=== PATIENT | female | born 1990 | race Caucasian/White ===

== ENCOUNTER 2017-01-25 09:22 | Emergency (ER) | payer OTHER ==
[~2017-01-25] VITALS: Ht 172.7 cm; Wt 113.4 kg
[~2017-01-25 09:22] MED LIST: CLIN300C8 PO
[2017-01-25 09:40] VITALS: BP 124/76
[2017-01-25] MEDS ORDERED: NAPR500T PO (09:58)
[2017-01-25] MEDS ORDERED: ACET-704 PO (09:58)
--- NOTE | 2017-01-25 10:02 | PHYS DOC ---
General Chief Complaint: ANKLE PROBLEM Stated Complaint: FOOT PROBLEM Time Seen by MD: 09:23 Source: patient Exam Limitations: no limitations Problems: History of Present Illness Initial Comments Pt is 26/F to ED c/o left foot pain. Pt states last night left foot went thru "hole" in her porch. States it caused her to fall forward twisting her foot. Complains of lateral foot pain no other injuries from the fall. Although pt barefoot and fell thru wood hole pt managed to avoid abrasions/lacerations/splinters/bruising or other skin changes. Missing work now, requests note and pain meds. Onset: yesterday Pain/Injury Location: left foot Method of Injury: twisted, other Modifying Factors: worse with jarring, worse with movement, improves with rest Allergies: Coded Allergies: Penicillins (Verified Allergy, Unknown, 08/09/16) Past Medical History Medical History: no pertinent history Surgical History: noncontributory Social History Smoker: non-smoker Alcohol: none Drugs: marijuana Review of Systems Constitutional: denies chills, denies fever Respiratory: denies cough, denies shortness of breath Cardiovascular: denies chest pain, denies palpitations Gastrointestinal: denies nausea, denies vomiting Musculoskeletal: see HPI Skin: see HPI Psychiatric/Neurological: see HPI Physical Exam General Appearance: no apparent distress, obese HEENT: normal ENT inspection Neck: non-tender, supple Cardiovascular/Respiratory: normal peripheral pulses, no respiratory distress Back: no CVA tenderness, no vertebral tenderness Feet: right foot non-tender, bilateral foot normal inspection, bilateral foot normal range of motion, bilateral foot no evidence of injury, left foot other ( TTP lateral foot) Neurologic/Tendon: normal sensation, normal motor functions, normal tendon functions, responds to pain, no evidence tendon injury Psychiatric: alert, oriented x 3 Skin: normal color, warm/dry Orders, Labs, Meds L Foot: no acute osseous abnormality Departure Time of Disposition: 10:01 Disposition: 01 HOME, SELF-CARE Diagnosis: midfoot sprain Condition: GOOD Patient Instructions: Foot Sprain-Brief, RICE - Routine Care for Injuries, Easy -to-Read Additional Instructions: RICE, see handout. Wear post-op shoe as needed. Work excuse today. Rx: [id number], Tyl #3 (10) Take meds with food. Follow up with your doctor in 5-7 days if not better. Return to ED with new or changing symptoms. ROSANNA MCCORMICK DO January 25, 2017 10:02
--- NOTE | 2017-01-25 10:10 | RAD ---
Examination: 3 views of the left foot History: History of left foot injury. Comparison: None available Findings: The alignment of the tarsal bones grossly appears unremarkable. The metatarsal phalangeal joints, interphalangeal joint grossly appears unremarkable. There is no obvious acute fracture identified. Mild soft tissue swelling identified lateral to the fifth metatarsal. Impression: No acute osseous findings. Mild soft tissue swelling identified lateral to the fifth metatarsal.
== END 2017-01-25 10:15 | disposition home or self-care (01) ==
LOC: ER 09:22
DX: S93.602A Unspecified sprain of left foot, initial encounter (principal); F12.10 Cannabis abuse, uncomplicated; Z88.0 Allergy status to penicillin; W19.XXXA Unspecified fall, initial encounter; Y93.89 Activity, other specified; Y99.8 Other external cause status; Y92.89 Other specified places as the place of occurrence of the external cause
CPT/HCPCS: 73630; 99284

== ENCOUNTER 2017-02-17 13:26 | Emergency (ER) | payer OTHER ==
[~2017-02-17] VITALS: Ht 157.5 cm; Wt 113.4 kg
[~2017-02-17 13:26] MED LIST changes: +ACET-704 PO; +NAPR500T PO
[2017-02-17 13:30] VITALS: BP 143/84
--- NOTE | 2017-02-17 14:06 | PHYS DOC ---
General Chief Complaint: LACERATION/AVULSION Stated Complaint: LACERATION TO RT EYE Time Seen by MD: 13:43 Source: patient Exam Limitations: no limitations Problems: History of Present Illness Occurred: just prior to arrival Severity: mild Location: frontal Method of Injury: other (stood up and struck her forehead on the corner of an open cabinet door. ) Pain/Injuries: sustained laceration to the right eyebrow region Loss of Consciousness: no loss of consciousness Associated Symptoms: denies symptoms Allergies: Coded Allergies: Penicillins (Verified Allergy, Unknown, 08/09/16) Past Medical History Medical History: no medical history LMP (Females 10-50): last week Family History Significant Family History: no pertinent family hx Social History Smoker: non-smoker Alcohol: none Drugs: none Review of Systems Constitutional: no symptoms reported Eyes: no symptoms reported Ears, Nose, Mouth, Throat: no symptoms reported Skin: other (laceration) Psychiatric/Neurological: no symptoms reported Physical Exam General Appearance: WD/WN, no apparent distress Head: lacerations (present to the upper outer right eyebrow region) Eyes: bilateral eye normal inspection, bilateral eye PERRL, bilateral eye EOMI Ears, Nose, Throat, Mouth: hearing grossly normal, no evidence of ENT injury Neck: non-tender, full range of motion Extremities: normal range of motion, normal inspection Psychiatric: alert, oriented x 3 Cranial Nerves: normal hearing Motor/Sensory: no motor deficit, no sensory deficit Skin: normal color (3cm laceration present the right lateral superior portion of the eyebrow. No active bleeding. Superficial) Laceration/Wound Repair Laceration/Wound Repair : Wound Location: face Wound's Depth, Shape: superficial, linear Wound Length (cm): 3 Wound Explored: clean Irrigated w/ Saline (ccs): 15 Betadine Prep?: No Wound Repaired With: Steri-strips, Dermabond Layer Closure?: No Orders, Labs, Meds No other intervention required. Steristrips and dermabond instructions provided to the patient. No complications and patient tolerated procedure without difficulty. Normal ambulation upon discharge. CALVIN CONLEY MD Feb 17, 2017 14:06
== END 2017-02-17 13:59 | disposition home or self-care (01) ==
LOC: ER 13:26
DX: S01.81XA Laceration without foreign body of other part of head, initial encounter (principal); Z88.0 Allergy status to penicillin; W22.8XXA Striking against or struck by other objects, initial encounter; Y93.89 Activity, other specified; Y99.8 Other external cause status; Y92.89 Other specified places as the place of occurrence of the external cause
CPT/HCPCS: 12011; 99283-25

== ENCOUNTER 2019-02-07 02:33 | Emergency (ER) | payer SELFPAY ==
[~2019-02-07] VITALS: Ht 160 cm; Wt 60.4 kg
[~2019-02-07 02:33] MED LIST changes: +NAPR-683 PO; -NAPR500T PO
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
--- NOTE | 2019-02-07 03:32 | RAD ---
PQRS Compliance statement: One or more of the following individualized dose reduction techniques were utilized for this examination: 1. Automated exposure control. 2. Adjustment of the mA and/or kV according to patient size. 3. Use of iterative reconstruction technique. Indication:Fall. TECHNIQUE: CT of the maxillofacial bones without IV contrast multiplanar reformats. COMPARISON: None FINDINGS: The paranasal sinuses and mastoid air cells are clear. No acute fractures. The bilateral temporomandibular joints and mandible are within normal limits. The lenses, globes, extraocular muscles and intraorbital fat are within normal limits. No fascial soft tissue swelling. Visualized noncontrast sections through the brain are within normal limits. IMPRESSION: No acute findings. Electronically signed by: Bertin Obregon DO (02/07/2019 3:28 AM) [facility]
--- NOTE | 2019-02-07 03:35 | RAD ---
PQRS Compliance statement: One or more of the following individualized dose reduction techniques were utilized for this examination: 1. Automated exposure control. 2. Adjustment of the mA and/or kV according to patient size. 3. Use of iterative reconstruction technique. Indication:Fall TECHNIQUE: CT head without IV contrast COMPARISON:None FINDINGS: No pathologic extra-axial or intra-axial fluid collection. The ventricles and basal cisterns are within normal limits. No acute intracranial bleed. Visualized orbits within normal limits. No large scalp hematoma. Mild laceration overlying the right lateral supraorbital scalp. No acute calvarial fractures. IMPRESSION: 1. No acute intracranial bleed or calvarial fracture. 2. Mild laceration overlying lateral right supraorbital frontal scalp. Indication:Fall TECHNIQUE: CT of the cervical spine without IV contrast with multiplanar reformats. COMPARISON:None FINDINGS: There is mild reversal of normal cervical lordosis. This could be due to muscle spasm or positioning. Atlantoaxial joint or is preserved. No compression deformity. Facet joints are in normal anatomic alignment. No acute fractures. Noncontrast appearance of the neck soft tissue is within normal limits. Clear lung apices. IMPRESSION: No acute fractures. Electronically signed by: Bertin Obregon DO (02/07/2019 3:33 AM) [facility]
[2019-02-07] MEDS ORDERED: HYDROcodone/APAP 5/325MG 1 TAB TABLET PO ONE (04:00)
[2019-02-07] MEDS ORDERED: HYDR-3165 PO (04:31)
[2019-02-07 04:37] VITALS: BP 124/68
== END 2019-02-07 04:37 | disposition home or self-care (01) ==
LOC: ER 02:33
DX: S01.111A Laceration without foreign body of right eyelid and periocular area, initial encounter (principal); R51 Headache; M54.2 Cervicalgia; W10.8XXA Fall (on) (from) other stairs and steps, initial encounter; Y93.89 Activity, other specified; Y92.89 Other specified places as the place of occurrence of the external cause; Y99.8 Other external cause status
CPT/HCPCS: 12013; 70450; 70486; 72125; 99284-25

== ENCOUNTER 2019-04-30 20:15 | Emergency (ER) | payer OTHER ==
[~2019-04-30] VITALS: Ht 160 cm; Wt 48.5 kg
[~2019-04-30 20:15] MED LIST changes: +HYDR-3165 PO
--- NOTE | 2019-04-30 21:38 | PHYS DOC ---
Past History Past Medical History: No Pertinent History Past Surgical History: Cholecystectomy, Gastric Bypass, Tonsillectomy Alcohol Use: None Drug Use: None Adult General Chief Complaint Chief Complaint: DRUG ABUSE HPI HPI 29-year-old female brought to the emergency room by her friend for drug intoxication. Patient states that she did meth, she thinks. Friend also reports marijuana and agrees it is likely methamphetamine. Patient denies any pain or concerns. She admits that she feels little paranoid and freaked out. She denies audible or visual hallucinations. She has no medical complaints. Review of Systems Review of Systems Constitutional: Denies fever or chills [] Eyes: Denies change in visual acuity, redness, or eye pain [] HENT: Denies nasal congestion or sore throat [] Respiratory: Denies cough or shortness of breath [] Cardiovascular: No additional information not addressed in HPI [] GI: Denies abdominal pain, nausea, vomiting, bloody stools or diarrhea [] : Denies dysuria or hematuria [] Musculoskeletal: Denies back pain or joint pain [] Integument: Denies rash or skin lesions [] Neurologic: Denies headache, focal weakness or sensory changes [] Endocrine: Denies polyuria or polydipsia [] All other systems were reviewed and found to be within normal limits, except as documented in this note. Current Medications Current Medications Current Medications Medications (Trade) Dose Ordered Sig/Gordo Start Time Stop Time Status Last Admin Dose Admin Sodium Chloride 1,000 ml @ 1,000 mls/hr 1X ONCE 04/30/19 22:00 04/30/19 22:59 Allergies Allergies Allergies Coded Allergies Type Severity Reaction Last Updated Verified Penicillins Allergy Intermediate 02/07/19 Yes Physical Exam Physical Exam Constitutional: Well developed, well nourished, no acute distress, non-toxic appearance. [] HENT: Normocephalic, atraumatic, bilateral external ears normal, oropharynx moist, no oral exudates, nose normal. [] Eyes: PERRLA, EOMI, conjunctiva normal, no discharge. [] Neck: Normal range of motion, no tenderness, supple, no stridor. [] Cardiovascular:Heart rate regular rhythm, no murmur [] Lungs & Thorax: Bilateral breath sounds clear to auscultation [] Abdomen: Bowel sounds normal, soft, no tenderness, no masses, no pulsatile masses. [] Skin: Warm, dry, no erythema, no rash. [] Back: No tenderness, no CVA tenderness. [] Extremities: No tenderness, no cyanosis, no clubbing, ROM intact, no edema. [] Neurologic: Alert and oriented X 3, normal motor function, normal sensory function, no focal deficits noted. [] Psychologic: Affect normal, judgement normal, mood normal. [] EKG EKG [] Radiology/Procedures Radiology/Procedures [] Course & Med Decision Making Course & Med Decision Making Pertinent Labs and Imaging studies reviewed. (See chart for details) The patient is agitated and paranoid, but her vitals are within normal limits. I will give her 4 mg of Ativan IV as well as 1 L normal saline. Labs are pending. The patient did not get her Ativan prior to leaving. Her labs are unremarkable. Her vital signs remained stable. She is positive for methamphetamine and marijuana. She does not appear to have taken a toxic dose. She is stable for discharge at this time. [] Dragon Disclaimer Dragon Disclaimer This electronic medical record was generated, in whole or in part, using a voice recognition dictation system. Departure Departure: Impression: Primary Impression: Methamphetamine abuse Additional Impression: Marijuana abuse Disposition: 01 HOME, SELF-CARE Condition: STABLE Referrals: PCP,NO (PCP) Problem Qualifiers WILLOW AVINA DO Apr 30, 2019 21:38
[2019-04-30 21:44] LABS: BARBITURATES NEG (NEG); BENZODIAZEPINES NEG (NEG); CANNABINOIDS POS (NEG); COCAINE NEG (NEG); METHADONE NEG (NEG); OPIATES NEG (NEG); PHENCYCLIDINE NEG (NEG)
[2019-04-30 21:46] LABS: AMPHETAMINE/METHAMPHETAMINE POS (NEG)
[2019-04-30 21:47] LABS: BASO # 0.1 x10^3/uL (0.0-0.2); BASO % 1 % (0-3); EOS % 0 % (0-3); HEMATOCRIT 43.1 % (36.0-47.0); HEMOGLOBIN 14.1 g/dL (12.0-15.5); LYMPH # 2.5 x10^3/uL (1.0-4.8); LYMPH % 29 % (24-48); MEAN CORPUSCULAR HEMOGLOBIN 27 pg (25-35); MEAN CORPUSCULAR HGB CONC 33 g/dL (31-37); MEAN CORPUSCULAR VOLUME 83 fL (79-100); MONO # 0.5 x10^3/uL (0.0-1.1); MONO % 6 % (0-9); NEUT # 5.6 x10^3uL (1.8-7.7); NEUT % 65 % (31-73); PLATELET COUNT 326 x10^3/uL (140-400); RED BLOOD COUNT 5.22 x10^6/uL (3.50-5.40); RED CELL DISTRIBUTION WIDTH 23.5 % (11.5-14.5); WHITE BLOOD COUNT 8.6 x10^3/uL (4.0-11.0)
[2019-04-30] MEDS ORDERED: IV NORMAL SALINE 1,000ML 1,000 ML IV ONE (22:00)
[2019-04-30 22:06] LABS: ALBUMIN 4.4 g/dL (3.4-5.0); CALCIUM 9.5 mg/dL (8.5-10.1); CREATININE 1.3 mg/dL (0.6-1.0); GFR 48.8; POTASSIUM 3.1 mmol/L (3.5-5.1); TOTAL BILIRUBIN 0.3 mg/dL (0.2-1.0); TOTAL PROTEIN 8.6 g/dL (6.4-8.2)
[2019-04-30 22:14] LABS: ACETAMIN < 2.0 mcg/mL (10-30); SALIC 4.1 mg/dL (2.8-20.0)
[2019-04-30 22:25] VITALS: BP 147/85
[2019-04-30 23:39] LABS: ANISOCYTOSIS SLIGHT; PLT ESTIMATE ADEQUATE (ADEQUATE); POLYCHROMASIA SLIGHT
[2019-04-30 23:40] LABS: SCHISTOCYTES OCC
== END 2019-04-30 22:27 | disposition home or self-care (01) ==
LOC: ER 20:15
DX: F15.10 Other stimulant abuse, uncomplicated (principal); F12.10 Cannabis abuse, uncomplicated; Z98.84 Bariatric surgery status; Z88.0 Allergy status to penicillin
CPT/HCPCS: 36415; 80053; 80307; 80329; 85025; 99284; G0480; 82003

== ENCOUNTER 2019-12-06 22:52 | Emergency (ER) | payer SELFPAY ==
[~2019-12-06] VITALS: Ht 160 cm; Wt 60.4 kg
[2019-12-06 22:52] VITALS: BP 130/89
--- NOTE | 2019-12-06 23:01 | PHYS DOC ---
Past History Past Medical History: No Pertinent History, Anxiety, Bipolar, Bronchitis, Constipation, Gallstones, GERD, UTI Past Medical History Genital herpes Past Surgical History: Cholecystectomy, Gastric Bypass, Tonsillectomy Past Surgical History Niko-en-Y bypass 2016 Smoking: Cigarettes Alcohol Use: None Drug Use: Marijuana, Methamphetamine Adult General Chief Complaint Chief Complaint: ".. I ve been hurting for months..... but I could not stand it tonight... here in my stomach area.. I am constipated too.. have not gone to bath room for 6 days but.. I have not eaten much... hand full of cereal this morning..." HPI HPI Patient is a 29 year old female who presents with above hx and complaints of severe epigastric pain. She also complaining of constipation. No recent travel outside the cancer area. Does have a history of GERD. No history of bad food intake. No history of trauma. Patient denies any significant treatment of immunosuppression or specific ill contacts. Review of Systems Review of Systems Constitutional: Denies fever or chills [] Eyes: Denies change in visual acuity, redness, or eye pain [] HENT: Denies nasal congestion or sore throat [] Respiratory: Denies cough or shortness of breath [] Cardiovascular: No additional information not addressed in HPI [] GI: Complaints of abdominal pain, nausea,. Denies vomiting, bloody stools or diarrhea [patient has complaints of constipation : Denies dysuria or hematuria [] Musculoskeletal: Denies back pain or joint pain [] Integument: Denies rash or skin lesions [] Neurologic: Denies headache, focal weakness or sensory changes [] Endocrine: Denies polyuria or polydipsia [] All other systems were reviewed and found to be within normal limits, except as documented in this note. Family History Family History Noncontributory Current Medications Current Medications See nursing for home meds Allergies Allergies Allergies Coded Allergies Type Severity Reaction Last Updated Verified Penicillins Allergy Intermediate 02/07/19 Yes Physical Exam Physical Exam Constitutional: Well developed, well nourished, moderate acute distress, non-toxic appearance. [] HENT: Normocephalic, atraumatic, bilateral external ears normal, oropharynx moist, no oral exudates, nose normal. [] Eyes: PERRLA, EOMI, conjunctiva normal, no discharge. [] Neck: Normal range of motion, no tenderness, supple, no stridor. [] Cardiovascular:Heart rate regular rhythm, no murmur [] Lungs & Thorax: Bilateral breath sounds equal apex with few scattered wheezes on auscultation [] Abdomen: Bowel sounds normal, soft, epigastric tenderness, no masses, no pulsatile masses. [Distended abdomen. No focal areas of rebound. Skin: Warm, dry, no erythema, no rash. [] Back: No tenderness, no CVA tenderness. [] Extremities: No tenderness, no cyanosis, no clubbing, ROM intact, no edema. No true psoas sign. Neurologic: Alert and oriented X 3, normal motor function, normal sensory func tion, no focal deficits noted. [] Psychologic: Affect very anxious, judgement normal, mood normal. [] EKG EKG [] Radiology/Procedures Radiology/Procedures [][address] [address] IMAGING REPORT Signed PATIENT: KO HOFFMAN LACCOUNT: [id number] : 1990 LOCATION: ER AGE: 29 SEX: F EXAM STATUS: REG ER ORD. PHYSICIAN: VICKY SELF MD REASON: Abdomen pain, nausea, constipation PROCEDURE: ACUTE ABDOMEN SERIES ACUTE ABDOMEN SERIES INDICATION: Abdominal pain, nausea, constipation. COMPARISON STUDY: None. FINDINGS: Lungs: Normal lung volume. No pulmonary mass or consolidation. The tracheobronchial tree and hilar structures are normal. Pleura: No pleural effusion or pneumothorax. Heart and Mediastinum: The cardiomediastinal silhouette is normal. The great vessels of the thorax are normal. Abdomen: Nonobstructive bowel gas pattern. No free air. Moderate colonic stool burden. IMPRESSION: 1. Nonobstructive bowel gas pattern. Moderate colonic stool. 2. No consolidation. Electronically signed by: Kiara Boles MD (12/07/2019 12:10 AM) [id number] DICTATED AND SIGNED BY: KIARA BOLES MD DATE: 12/07/19 0010 CC: VICKY SELF MD; PCP,NO ~ Course & Med Decision Making Course & Med Decision Making Pertinent Labs and Imaging studies reviewed. (See chart for details) Patient's stay on a clear fluid diet only for the next 2 days. No solids no milk products. Follow-up primary care. Expect some loose stools with the magnesium. Follow-up primary care. Return for reexam if no improvement 2 days of clear fluids. Take Tylenol for pain. Avoid illicit drugs. Encouraged patient not to smoke. Take Bactrim DS twice a day. Which vitamin C drinks. Return if any concerns. Follow- CDC for up to date guidelines on [place] 19. Self isolate.. Practice social distance Impression: 1. Abdomen Pain 2. Constipation 3. Polysubstance abuse 4. Tobacco and marijuana use 5. Urinary tract infection []Note there may be omissions, deficits and/or duplications because of computer shut down during workup of this patient. Dragon Disclaimer Dragon Disclaimer This electronic medical record was generated, in whole or in part, using a voice recognition dictation system. Departure Departure: Disposition: HOME/RESIDENCE PRIOR TO ADM Condition: STABLE Referrals: PCP,NO (PCP) Scripts Sulfamethoxazole/Trimethoprim (BACTRIM DS TABLET) 1 Each Tablet 1 TAB PO BID for UTI for 10 Days, #20 TAB 0 Refills Prov: VICKY SELF MD 12/07/19 Dragon Disclaimer This chart was dictated in whole or in part using Voice Recognition software in a busy, high-work load, and often noisy Emergency Department environment. It may contain unintended and wholly unrecognized errors or omissions. Dragon Disclaimer This chart was dictated in whole or in part using Voice Recognition software in a busy, high-work load, and often noisy Emergency Department environment. It may contain unintended and wholly unrecognized errors or omissions. VICKY SELF MD Dec 06, 2019 23:01
[2019-12-06] MEDS ORDERED: IV RINGERS SOLUTION,LACTATED 1,000 ML IV SCH (23:15)
[2019-12-06] MEDS ORDERED: FAMOTIDINE 20 MG/2 ML VIAL IVP ONE (23:30)
[2019-12-06] MEDS ORDERED: ONDANSETRON PF 4 MG/2 ML VIAL. IVP ONE (23:30)
[2019-12-06 23:43] LABS: BASO # 0.2 x10^3/uL (0.0-0.2); BASO % 2 % (0-3); EOS # 0.1 x10^3/uL (0.0-0.7); EOS % 1 % (0-3); HEMATOCRIT 35.9 % (36.0-47.0); HEMOGLOBIN 11.6 g/dL (12.0-15.5); LYMPH # 2.6 x10^3/uL (1.0-4.8); LYMPH % 28 % (24-48); MEAN CORPUSCULAR HEMOGLOBIN 27 pg (25-35); MEAN CORPUSCULAR HGB CONC 32 g/dL (31-37); MEAN CORPUSCULAR VOLUME 82 fL (79-100); MONO # 0.5 x10^3/uL (0.0-1.1); MONO % 5 % (0-9); NEUT # 5.9 x10^3uL (1.8-7.7); NEUT % 64 % (31-73); PLATELET COUNT 588 x10^3/uL (140-400); RED BLOOD COUNT 4.39 x10^6/uL (3.50-5.40); RED CELL DISTRIBUTION WIDTH 15.9 % (11.5-14.5); WHITE BLOOD COUNT 9.3 x10^3/uL (4.0-11.0)
[2019-12-06] MEDS ORDERED: KETOROLAC 30 MG/ML VIAL. IVP ONE (23:45)
[2019-12-06 23:57] LABS: ANION GAP 7 (6-14); BLOOD UREA NITROGEN 9 mg/dL (7-20); CALCIUM 8.8 mg/dL (8.5-10.1); CARBON DIOXIDE 31 mmol/L (21-32); CHLORIDE 104 mmol/L (98-107); CREATININE 0.8 mg/dL (0.6-1.0); GFR 85.4; GLUCOSE 104 mg/dL (70-99); SODIUM 142 mmol/L (136-145)
[2019-12-06 23:58] LABS: BARBITURATES NEG (NEG); BENZODIAZEPINES POS (NEG); BILIRUBIN,URINE NEG (NEG); CANNABINOIDS POS (NEG); CLARITY,URINE HAZY; COCAINE NEG (NEG); COLOR,URINE YELLOW; GLUCOSE,URINE NEG (NEG); METHADONE NEG (NEG); NITRITE,URINE POS (NEG); OPIATES POS (NEG); PHENCYCLIDINE NEG (NEG)
[2019-12-06 23:59] LABS: BACTERIA,URINE MANY /HPF (0-FEW); RBC,URINE 0 /HPF (0-2); SQUAMOUS EPITHELIAL CELL,UR OCC /LPF; WBC,URINE 20-40 /HPF (0-4)
[2019-12-07 00:02] LABS: AMPHETAMINE/METHAMPHETAMINE POS (NEG)
[2019-12-07 00:04] LABS: ALBUMIN 3.3 g/dL (3.4-5.0); ALK PHOS 103 U/L (46-116); ALT (SGPT) 21 U/L (14-59); AMYLASE 67 U/L (25-115); AST (SGOT) 22 U/L (15-37); DIRECT BILIRUBIN < 0.1 mg/dL (0.0-0.2); LIPASE 231 U/L (73-393); TOTAL BILIRUBIN 0.3 mg/dL (0.2-1.0); TOTAL PROTEIN 7.4 g/dL (6.4-8.2)
[2019-12-07 00:06] LABS: POTASSIUM 3.8 mmol/L (3.5-5.1)
--- NOTE | 2019-12-07 00:13 | RAD ---
ACUTE ABDOMEN SERIES INDICATION: Abdominal pain, nausea, constipation. COMPARISON STUDY: None. FINDINGS: Lungs: Normal lung volume. No pulmonary mass or consolidation. The tracheobronchial tree and hilar structures are normal. Pleura: No pleural effusion or pneumothorax. Heart and Mediastinum: The cardiomediastinal silhouette is normal. The great vessels of the thorax are normal. Abdomen: Nonobstructive bowel gas pattern. No free air. Moderate colonic stool burden. IMPRESSION: 1. Nonobstructive bowel gas pattern. Moderate colonic stool. 2. No consolidation. Electronically signed by: Ezra Moreno MD (12/07/2019 12:10 AM) [id number]
[2019-12-07] MEDS ORDERED: SMZ/TMP 800/160MG TABLET. PO ONE (02:11)
[2019-12-07] MEDS ORDERED: SULF1TAB24 PO (02:43)
== END 2019-12-07 02:12 | disposition home or self-care (01) ==
LOC: ER 22:52
DX: K59.00 Constipation, unspecified (principal); N39.0 Urinary tract infection, site not specified; F19.10 Other psychoactive substance abuse, uncomplicated; F17.210 Nicotine dependence, cigarettes, uncomplicated; F12.10 Cannabis abuse, uncomplicated; F15.10 Other stimulant abuse, uncomplicated; Z90.49 Acquired absence of other specified parts of digestive tract; Z98.84 Bariatric surgery status; Z88.0 Allergy status to penicillin
CPT/HCPCS: 36415; 74022; 80048; 80076; 80307; 81001; 81025; 82150; 82550; 83690; 84484; 85025; 85610; 85730; 87086; 96374; 96375; 99284; J1885; J2405; J3490; J7120

== ENCOUNTER 2020-06-11 19:35 | Emergency (ER) | payer SELFPAY ==
[~2020-06-11] VITALS: Ht 160 cm; Wt 60.4 kg
[~2020-06-11 19:35] MED LIST changes: +SULF1TAB24 PO
[2020-06-11] MEDS ORDERED: IV NORMAL SALINE 1,000ML 1,000 ML IV SCH (20:29)
[2020-06-11] MEDS ORDERED: IV NORMAL SALINE 1,000ML 1,000 ML IV ONE (20:30)
[2020-06-11] MEDS ORDERED: ONDANSETRON PF 4 MG/2 ML VIAL. IVP ONE (20:30)
[2020-06-11 20:43] LABS: CALCIUM 9.3 mg/dL (8.5-10.1); GFR 65.6; POTASSIUM 3.2 mmol/L (3.5-5.1)
[2020-06-11 20:50] LABS: ALBUMIN 3.6 g/dL (3.4-5.0); ALBUMIN/GLOBULIN RATIO 0.8 (1.0-1.7); TOTAL BILIRUBIN 0.2 mg/dL (0.2-1.0); TOTAL PROTEIN 8.2 g/dL (6.4-8.2)
[2020-06-11 20:54] LABS: BASO % 1 % (0-3); EOS # 0.1 x10^3/uL (0.0-0.7); EOS % 1 % (0-3); HEMATOCRIT 39.2 % (36.0-47.0); HEMOGLOBIN 12.4 g/dL (12.0-15.5); LYMPH # 2.8 x10^3/uL (1.0-4.8); LYMPH % 39 % (24-48); MEAN CORPUSCULAR HEMOGLOBIN 25 pg (25-35); MEAN CORPUSCULAR HGB CONC 32 g/dL (31-37); MEAN CORPUSCULAR VOLUME 79 fL (79-100); MONO # 0.5 x10^3/uL (0.0-1.1); MONO % 7 % (0-9); NEUT # 3.7 x10^3uL (1.8-7.7); NEUT % 52 % (31-73); PLATELET COUNT 510 x10^3/uL (140-400); RED BLOOD COUNT 4.94 x10^6/uL (3.50-5.40); RED CELL DISTRIBUTION WIDTH 19.6 % (11.5-14.5); WHITE BLOOD COUNT 7.2 x10^3/uL (4.0-11.0)
--- NOTE | 2020-06-11 22:55 | PHYS DOC ---
Past History Past Medical History: Anxiety, Bipolar, Bronchitis, Constipation, Gallstones, GERD, UTI Past Surgical History: Cholecystectomy, Gastric Bypass, Tonsillectomy Smoking: Cigarettes Alcohol Use: None Drug Use: Marijuana, Methamphetamine Adult General Chief Complaint Chief Complaint: ABDOMINAL PAIN HPI HPI Patient is a 30 year old female who presents with complaint of left-sided abdominal pain. The patient states that her symptoms started earlier today and notes sharp pain along the left side of the abdomen towards the pelvis. Notes that the pain is 10 out of 10. Patient notes that she has not had a bowel movement in the past 2 days. Has not had any fevers or vomiting associated with her symptoms. She has not taken medications for her symptoms. No history of similar symptoms. Review of Systems Review of Systems Constitutional: Denies fever or chills [] Eyes: Denies change in visual acuity, redness, or eye pain [] HENT: Denies nasal congestion or sore throat [] Respiratory: Denies cough or shortness of breath [] Cardiovascular: Denies chest pain or edema [] GI: Abdominal pain, nausea, denies bloody stools or diarrhea [] : Denies dysuria or hematuria [] Musculoskeletal: Denies back pain or joint pain [] Integument: Denies rash or skin lesions [] Neurologic: Denies headache, focal weakness or sensory changes [] All other systems were reviewed and found to be within normal limits, except as documented in this note. Current Medications Current Medications Current Medications Medications (Trade) Dose Ordered Sig/Gordo Start Time Stop Time Status Last Admin Dose Admin Fentanyl Citrate (Fentanyl 2ml Vial) 50 mcg PRN Q15MIN PRN 06/11/20 20:30 06/12/20 20:29 06/11/20 20:35 50 MCG Ondansetron HCl (Zofran) 4 mg 1X ONCE 06/11/20 20:30 06/11/20 20:39 DC 06/11/20 20:35 4 MG Sodium Chloride 1,000 ml @ 1,000 mls/hr 1X ONCE 06/11/20 20:30 06/11/20 21:29 DC 06/11/20 20:35 1,000 MLS/HR Allergies Allergies Allergies Coded Allergies Type Severity Reaction Last Updated Verified Penicillins Allergy Intermediate 02/07/19 Yes Physical Exam Physical Exam Constitutional: Alert, afebrile, appears in moderate discomfort. [] HENT: Normocephalic, atraumatic, bilateral external ears normal, oropharynx moist, no oral exudates, nose normal. [] Eyes: PERRLA, EOMI, conjunctiva normal, no discharge. [] Neck: Normal range of motion, no tenderness, supple, no stridor. [] Cardiovascular:Heart rate regular rhythm, no murmur [] Lungs & Thorax: Bilateral breath sounds clear to auscultation [] Abdomen: Bowel sounds normal, soft, left lower quadrant tenderness to palpation, no guarding or rebound tenderness, no masses, no pulsatile masses. [] Skin: Warm, dry, no erythema, no rash. [] Back: No tenderness, no CVA tenderness. [] Extremities: No tenderness, no cyanosis, no clubbing, ROM intact, no edema. [] Neurologic: Alert and oriented X 3, normal motor function, normal sensory function, no focal deficits noted. [] Current Patient Data Vital Signs Vital Signs Date Time Temp Pulse Resp B/P (MAP) Pulse Ox O2 Delivery O2 Flow Rate FiO2 06/11/20 21:53 53 20 115/70 (85) 100 Room Air 06/11/20 20:25 97.9 Lab Results Laboratory Tests Test 06/11/20 20:16 White Blood Count 7.2 x10^3/uL (4.0-11.0) Red Blood Count 4.94 x10^6/uL (3.50-5.40) Hemoglobin 12.4 g/dL (12.0-15.5) Hematocrit 39.2 % (36.0-47.0) Mean Corpuscular Volume 79 fL (79-100) Mean Corpuscular Hemoglobin 25 pg (25-35) Mean Corpuscular Hemoglobin Concent 32 g/dL (31-37) Red Cell Distribution Width 19.6 % (11.5-14.5) H Platelet Count 510 x10^3/uL (140-400) H Neutrophils (%) (Auto) 52 % (31-73) Lymphocytes (%) (Auto) 39 % (24-48) Monocytes (%) (Auto) 7 % (0-9) Eosinophils (%) (Auto) 1 % (0-3) Basophils (%) (Auto) 1 % (0-3) Neutrophils # (Auto) 3.7 x10^3uL (1.8-7.7) Lymphocytes # (Auto) 2.8 x10^3/uL (1.0-4.8) Monocytes # (Auto) 0.5 x10^3/uL (0.0-1.1) Eosinophils # (Auto) 0.1 x10^3/uL (0.0-0.7) Basophils # (Auto) 0.0 x10^3/uL (0.0-0.2) Maternal Serum HCG Beta Subunit 1 mIU/mL (0-6) Sodium Level 140 mmol/L (136-145) Potassium Level 3.2 mmol/L (3.5-5.1) L Chloride Level 100 mmol/L (98-107) Carbon Dioxide Level 28 mmol/L (21-32) Anion Gap 12 (6-14) Blood Urea Nitrogen 6 mg/dL (7-20) L Creatinine 1.0 mg/dL (0.6-1.0) Estimated GFR (Cockcroft-Gault) 65.6 BUN/Creatinine Ratio 6 (6-20) Glucose Level 134 mg/dL (70-99) H Calcium Level 9.3 mg/dL (8.5-10.1) Total Bilirubin 0.2 mg/dL (0.2-1.0) Aspartate Amino Transferase (AST) 16 U/L (15-37) Alanine Aminotransferase (ALT) 31 U/L (14-59) Alkaline Phosphatase 156 U/L (46-116) H Total Protein 8.2 g/dL (6.4-8.2) Albumin 3.6 g/dL (3.4-5.0) Albumin/Globulin Ratio 0.8 (1.0-1.7) L EKG EKG Not performed[] Radiology/Procedures Radiology/Procedures [address] [address] IMAGING REPORT Signed PATIENT: KO HOFFMAN LACCOUNT: [id number] : 1990 LOCATION: ER AGE: 30 SEX: F EXAM STATUS: REG ER ORD. PHYSICIAN: PRAVEEN INFANTE MD REASON: Left-sided abdominal pain.HX GASTRIC BYPASS PROCEDURE: ABDOMEN SUPINE & UPRIGHT EXAM: ABDOMEN SUPINE UPRIGHT 06/11/2020 10:53 PM CLINICAL INDICATION:Left-sided abdominal pain, history of gastric bypass COMPARISON:Abdominal series radiograph 12/06/2019 TECHNIQUE:AP supine and upright views of abdomen FINDINGS:There is suture material in the epigastric region and surgical clips the right upper quadrant. A large volume of stool is seen in the colon. No evidence of small bowel obstruction. No pneumoperitoneum. Lung bases are clear. No acute osseous abnormality. IMPRESSION:Large volume of stool. Electronically signed by: Dalia Stewart MD (06/11/2020 11:22 PM) [id number] DICTATED AND SIGNED BY: DALIA STEWART MD DATE: 06/11/202321 CC: PRAVEEN INFANTE MD; PCP,NO ~ [] Course & Med Decision Making Course & Med Decision Making Pertinent Labs and Imaging studies reviewed. (See chart for details) Patient given IV fluids, fentanyl, and Zofran in the emergency department. Patient notes that pain symptoms have significantly improved after treatment ad ministered. The patient's lab work and imaging support because of pain symptoms to be likely due to constipation. Prescribed MiraLAX for home treatment. Advise follow-up in the next 2 to 3 days with primary care physician for reevaluation and return to the emergency department for any worsening symptoms. Patient voiced understanding and agreement with treatment plan. [] Dragon Disclaimer Dragon Disclaimer This electronic medical record was generated, in whole or in part, using a voice recognition dictation system. Departure Departure: Impression: Primary Impression: Constipation Disposition: 01 HOME/RESIDENCE PRIOR TO ADM Condition: STABLE Referrals: PCP,NO (PCP) Patient Instructions: Constipation, Adult Additional Instructions: Follow-up with your primary care physician in the next 2 to 3 days for reevaluation. Return to the emergency department for any worsening symptoms. Scripts Polyethylene Glycol 3350 (MIRALAX) 119 Gm Powder 17 GM PO DAILY PRN for CONSTIPATION, #255 GM 0 Refills dissolve in water Prov: PRAVEEN INFANTE MD 06/11/20 Justification of Admission: Justification of Admission: Justification of Admission Dx: N/A Problem Qualifiers Primary Impression: Constipation Constipation type: unspecified constipation type Qualified Codes: K59.00 - Constipation, unspecified PRAVEEN INFANTE MD Jun 11, 2020 22:55
--- NOTE | 2020-06-11 23:25 | RAD ---
EXAM: ABDOMEN SUPINE UPRIGHT 06/11/2020 10:53 PM CLINICAL INDICATION:Left-sided abdominal pain, history of gastric bypass COMPARISON:Abdominal series radiograph 12/06/2019 TECHNIQUE:AP supine and upright views of abdomen FINDINGS:There is suture material in the epigastric region and surgical clips the right upper quadrant. A large volume of stool is seen in the colon. No evidence of small bowel obstruction. No pneumoperitoneum. Lung bases are clear. No acute osseous abnormality. IMPRESSION:Large volume of stool. Electronically signed by: Dalia Stewart MD (06/11/2020 11:22 PM) [id number]
[2020-06-11] MEDS ORDERED: POLY119P4 PO (23:46)
[2020-06-11 23:53] VITALS: BP 118/73
== END 2020-06-12 00:15 | disposition home or self-care (01) ==
LOC: ER 19:35
DX: K59.00 Constipation, unspecified (principal); K21.9 Gastro-esophageal reflux disease without esophagitis; F17.210 Nicotine dependence, cigarettes, uncomplicated; Z87.440 Personal history of urinary (tract) infections; Z88.0 Allergy status to penicillin; Z90.89 Acquired absence of other organs; Z98.84 Bariatric surgery status
CPT/HCPCS: 36415; 74019; 80053; 84702; 85025; 96361; 96374; 96375; 99285; J2405; J3010; J7030; 99284-25

== ENCOUNTER 2020-07-25 16:14 | Emergency (ER) | payer SELFPAY ==
[~2020-07-25] VITALS: Ht 160 cm; Wt 50.0 kg
[~2020-07-25 16:14] MED LIST changes: +POLY119P4 PO
--- NOTE | 2020-07-25 16:26 | PHYS DOC ---
Past History Past Medical History: Anxiety, Bipolar, Bronchitis, Constipation, Gallstones, GERD, UTI Past Surgical History: Cholecystectomy, Gastric Bypass, Tonsillectomy Smoking: Cigarettes Alcohol Use: None Drug Use: Marijuana, Methamphetamine Adult General Chief Complaint Chief Complaint: OVERDOSE HPI HPI Patient is a 30-year-old female who presents via EMS for lower extremity paresthesias. Patient initially reported vague symptoms of feeling cold and lower extremity paresthesias to EMS. She was found to be hypotensive on arrival with pressures approximately 70/40. X1 18-gauge peripheral IV established and 1 L normal saline fluid bolus initiated in route to our facility for evaluation. On arrival, patient agitated, has pressured speech and repeatedly asking for blankets because she is cold. She admits she took 50 units of meth via " butt rocket" approximately 30 minutes prior to calling EMS. Denies fever, headache, chest pain, shortness of breath, abdominal pain, changes in bladder and/or bowel function. Review of Systems Review of Systems Fourteen body systems of review of systems have been reviewed. See HPI for pertinent positives and negative responses, other bob all other systems are negative, non-pertinent or non-contributory Allergies Allergies Allergies Coded Allergies Type Severity Reaction Last Updated Verified Penicillins Allergy Intermediate 02/07/19 Yes Physical Exam Physical Exam Constitutional: Poorly kept, thin, moderate distress consistent with acute meth intoxication, non-toxic appearance. HENT: Normocephalic, atraumatic, bilateral external ears normal, oropharynx moist, no oral exudates, nose normal. Eyes: PERRLA, EOMI, conjunctiva normal, no discharge. Neck: Normal range of motion, no tenderness, supple, no stridor. Cardiovascular: Heart rate regular, sinus rhythm, no murmurs rubs or gallops Lungs & Thorax: Bilateral breath sounds clear to auscultation Abdomen: Bowel sounds normal, soft, no tenderness, no masses, no pulsatile masses. Nonsurgical abdomen, no peritoneal signs Skin: Warm, dry, no erythema, no rash. Back: No tenderness, no CVA tenderness. Extremities: No tenderness, no cyanosis, no clubbing, ROM intact, no edema. Pulses intact to bilateral upper and lower extremities Neurologic: Alert and oriented X 3, grossly normal motor & sensory function, no focal deficits noted. Psychologic: Anxious mood, pressured speech Current Patient Data Vital Signs Vital Signs Date Time Temp Pulse Resp B/P (MAP) Pulse Ox O2 Delivery O2 Flow Rate FiO2 07/25/20 17:32 99 16 99 07/25/20 16:20 97.6 Room Air EKG EKG [] Radiology/Procedures Radiology/Procedures [] Heart Score Risk Factors: Risk Factors: DM, Current or recent (<one month) smoker, HTN, HLP, family history of CAD, obesity. Risk Scores: Risk Factors: DM, Current or recent (<one month) smoker, HTN, HLP, family history of CAD, obesity. Course & Med Decision Making Course & Med Decision Making I have reviewed the relevant issues with the patient. They are aware of the suspected diagnosis of acute meth intoxication suggested by limited medical exam Patient received a total of 1 L normal saline with improvement in the patient's blood pressure from 70/40 on arrival to 93/36 while at rest. She is wanting to leave prior to administration of a second liter citing she wants to go home and no longer wants medical attention. The patient is AAOx3, although she admits to methamphetamine intoxication greater than 2 hours ago she is not intoxicated to a point that would impair ability to delineate a choice, and demonstrates all four rangel elements of capacity to make decisions regarding the medical care offered. - Patient able to Communicate their treatment choice - Patient able to Understand and recall information - Patient able to Appreciate and process probable outcomes of their condition - Patient able to Reason through communication their rationalization about their choice of care options, regardless of whether I as their provider agree with their rationale. Risks and Recommendations: The risks of refusing recommended care that were disclosed and acknowledged by the patient include loss of current lifestyle, per manent mental impairment, and . The recommended medical care being refused has been discussed with the patient and is to stay for continued monitoring, workup, and possible treatment. Discharge Care: The patient understands they are welcome to return to the hospital at any time to receive the recommended care or any other care at any time, regardless of their ability to pay for such care. Discharge instructions were provided to the patient. Dragon Disclaimer Dragon Disclaimer This electronic medical record was generated, in whole or in part, using a voice recognition dictation system. Departure Departure: Impression: Primary Impression: Left against medical advice Additional Impression: Methamphetamine abuse Disposition: 07 AMA/ELOPED/LWBS Condition: STABLE Referrals: PCP,NO (PCP) Patient Instructions: Drug Abuse and Addiction-SportsMed, Methamphetamine Abuse, Complications Additional Instructions: You have been evaluated in the Emergency Department today. You are refusing further testing, imaging, and further admission and choosing to leave against medical advice. You were advised of your risks of leaving and understand that permanent harm, or even , can occur from failing to follow the recommendations of the physician. Please follow up with your primary care physician as needed. If you do not have a primary doctor, you can call your insurance company to find one. If you do not have insurance, you can go to the finance/registration department for more assistance. Return to the Emergency Department immediately if you experience worsening or uncontrolled pain, persistent fevers, recurrent vomiting, blood in vomit, blood in stool, dark tarry stool, chest pain, shortness of breath, or for any other concerning symptoms. Problem Qualifiers YOSSI KO DO Jul 25, 2020 16:26
[2020-07-25] MEDS ORDERED: IV NORMAL SALINE 1,000ML 1,000 ML IV ONE (16:30)
[2020-07-25 17:32] VITALS: BP 93/36
== END 2020-07-25 17:55 | disposition left against medical advice (07) ==
LOC: ER 16:14
DX: F15.10 Other stimulant abuse, uncomplicated (principal); R20.2 Paresthesia of skin; R45.1 Restlessness and agitation; F41.9 Anxiety disorder, unspecified; F31.9 Bipolar disorder, unspecified; K21.9 Gastro-esophageal reflux disease without esophagitis; F17.210 Nicotine dependence, cigarettes, uncomplicated; Z87.440 Personal history of urinary (tract) infections; Z88.0 Allergy status to penicillin
CPT/HCPCS: 96360; 99283; J7030

== ENCOUNTER 2021-01-29 20:21 | Emergency (ER) | payer SELFPAY ==
[~2021-01-29] VITALS: Ht 160 cm; Wt 50.0 kg
[~2021-01-29 20:21] MED LIST changes: -CLIN300C8 PO; +CLIN300C9 PO
[2021-01-29] MEDS ORDERED: IV NORMAL SALINE 1,000ML 1,000 ML IV ONE (20:45)
[2021-01-29 21:12] LABS: BASO % 0 % (0-3); EOS % 0 % (0-3); HEMOGLOBIN 10.8 g/dL (12.0-15.5); LYMPH # 0.3 x10^3/uL (1.0-4.8); LYMPH % 2 % (24-48); MEAN CORPUSCULAR HEMOGLOBIN 26 pg (25-35); MEAN CORPUSCULAR HGB CONC 32 g/dL (31-37); MEAN CORPUSCULAR VOLUME 81 fL (79-100); MONO # 0.3 x10^3/uL (0.0-1.1); MONO % 2 % (0-9); NEUT # 14.8 x10^3uL (1.8-7.7); NEUT % 96 % (31-73); PLATELET COUNT 299 x10^3/uL (140-400); RED BLOOD COUNT 4.17 x10^6/uL (3.50-5.40); RED CELL DISTRIBUTION WIDTH 16.7 % (11.5-14.5); WHITE BLOOD COUNT 15.4 x10^3/uL (4.0-11.0)
[2021-01-29 21:20] LABS: CALCIUM 8.7 mg/dL (8.5-10.1); CREATININE 1.1 mg/dL (0.6-1.0); GFR 58.7; POTASSIUM 3.7 mmol/L (3.5-5.1)
[2021-01-29 21:27] LABS: ALBUMIN 3.1 g/dL (3.4-5.0); ALBUMIN/GLOBULIN RATIO 0.8 (1.0-1.7); MAGNESIUM 1.6 mg/dL (1.8-2.4); TOTAL PROTEIN 7.1 g/dL (6.4-8.2)
[2021-01-29 21:52] LABS: ACETAMIN < 2 mcg/mL (10-30); SALIC < 2.8 mg/dL (2.8-20.0)
[2021-01-29 22:03] LABS: % BANDS 18 % (0-9); % LYMPHS 2 % (24-48); % MONOS 3 % (0-10); % SEGS 77 % (35-66)
[2021-01-29 22:04] LABS: PLT ESTIMATE ADEQUATE (ADEQUATE)
--- NOTE | 2021-01-29 22:29 | RAD ---
EXAMINATION: XR CHEST 1V CLINICAL HISTORY: Fever EXAM DATE/TIME: 01/29/2021 9:47 PM COMPARISON: None FINDINGS: Lines, Tubes, and Devices: None. Cardiomediastinal Silhouette: Within normal limits. Lungs and Pleura: No evidence of focal airspace consolidation or pleural effusion. Pulmonary vasculat ure unremarkable. Probable skinfold in the lateral right hemithorax. Bones and Soft Tissues: No acute osseous abnormality. IMPRESSION: No evidence of acute cardiopulmonary abnormality. Electronically signed by: Hiren Martinez DO (01/29/2021 10:27 PM) STEPHY
--- NOTE | 2021-01-29 22:50 | PHYS DOC ---
Past History Past Medical History: No Pertinent History Past Medical History Limited secondary to intoxication Past Surgical History: Cholecystectomy, Gastric Bypass, Tonsillectomy Additional Past Surgical Histo: GI Past Surgical History Limited secondary to intoxication Smoking: Cigarettes Alcohol Use: None Drug Use: Marijuana, Methamphetamine Social History Limited secondary to intoxication General Adult EDM: Chief Complaint: OVERDOSE HPI: HPI: Patient is a [age] year old [sex] who presents with [] History of present illness limited secondary to intoxication. Review of Systems: Review of Systems: Review of systems limited secondary to intoxication Current Medications: Current Meds: Current Medications Medications (Trade) Dose Ordered Sig/Gordo Start Time Stop Time Status Last Admin Dose Admin Sodium Chloride 1,000 ml @ 1,000 mls/hr 1X ONCE 01/29/21 20:45 01/29/21 21:44 DC 01/29/21 21:36 1,000 MLS/HR Allergies: Allergies: Allergies Coded Allergies Type Severity Reaction Last Updated Verified Penicillins Allergy Intermediate 02/07/19 Yes Physical Exam: PE: Constitutional: Well developed, well nourished, no acute distress, non-toxic appearance HENT: Normocephalic, atraumatic Eyes: PERRL, EOMI, conjunctiva normal, no discharge Neck: Normal range of motion, no tenderness, supple Lungs & Thorax: No respiratory distress, equal chest rise and fall Abdomen: Soft, no tenderness Skin: Warm, dry, no erythema, no rash Back: No tenderness, no CVA tenderness Extremities: No tenderness, ROM intact, no edema Neurologic: Alert and oriented X 3, normal motor function, normal sensory function, no focal deficits noted Psychologic: Affect normal, judgment normal Current Patient Data: Labs: Laboratory Tests Test 01/29/21 20:50 White Blood Count 15.4 x10^3/uL (4.0-11.0) H Red Blood Count 4.17 x10^6/uL (3.50-5.40) Hemoglobin 10.8 g/dL (12.0-15.5) L Hematocrit 34.0 % (36.0-47.0) L Mean Corpuscular Volume 81 fL (79-100) Mean Corpuscular Hemoglobin 26 pg (25-35) Mean Corpuscular Hemoglobin Concent 32 g/dL (31-37) Red Cell Distribution Width 16.7 % (11.5-14.5) H Platelet Count 299 x10^3/uL (140-400) Neutrophils (%) (Auto) 96 % (31-73) H Lymphocytes (%) (Auto) 2 % (24-48) L Monocytes (%) (Auto) 2 % (0-9) Eosinophils (%) (Auto) 0 % (0-3) Basophils (%) (Auto) 0 % (0-3) Neutrophils # (Auto) 14.8 x10^3uL (1.8-7.7) H Lymphocytes # (Auto) 0.3 x10^3/uL (1.0-4.8) L Monocytes # (Auto) 0.3 x10^3/uL (0.0-1.1) Eosinophils # (Auto) 0.0 x10^3/uL (0.0-0.7) Basophils # (Auto) 0.0 x10^3/uL (0.0-0.2) Segmented Neutrophils % 77 % (35-66) H Band Neutrophils % 18 % (0-9) H Lymphocytes % 2 % (24-48) L Monocytes % 3 % (0-10) Platelet Estimate Adequate (ADEQUATE) Sodium Level 143 mmol/L (136-145) Potassium Level 3.7 mmol/L (3.5-5.1) Chloride Level 106 mmol/L (98-107) Carbon Dioxide Level 25 mmol/L (21-32) Anion Gap 12 (6-14) Blood Urea Nitrogen 13 mg/dL (7-20) Creatinine 1.1 mg/dL (0.6-1.0) H Estimated GFR (Cockcroft-Gault) 58.7 BUN/Creatinine Ratio 12 (6-20) Glucose Level 103 mg/dL (70-99) H Calcium Level 8.7 mg/dL (8.5-10.1) Magnesium Level 1.6 mg/dL (1.8-2.4) L Total Bilirubin 1.0 mg/dL (0.2-1.0) Aspartate Amino Transferase (AST) 190 U/L (15-37) H Alanine Aminotransferase (ALT) 200 U/L (14-59) H Alkaline Phosphatase 251 U/L (46-116) H Total Protein 7.1 g/dL (6.4-8.2) Albumin 3.1 g/dL (3.4-5.0) L Albumin/Globulin Ratio 0.8 (1.0-1.7) L Salicylates Level < 2.8 mg/dL (2.8-20.0) L Salicylate Last Dose Date Unknown Salicylate Last Dose Time Unknown Acetaminophen Level < 2 mcg/mL (10-30) L Acetaminophen Last Dose Date Unknown Acetaminophen Last Dose Time Unknown Ethyl Alcohol Level < 10 mg/dL (0-10) Vital Signs: Vital Signs Date Time Temp Pulse Resp B/P (MAP) Pulse Ox O2 Delivery O2 Flow Rate FiO2 01/29/21 21:23 99 20 99 01/29/21 20:25 100.7 124/76 (92) Room Air EKG: EKG: @2150 NSR at 81bpm, NO ST elevation, QRS 84ms, QT/QTc 350/407ms Radiology/Procedures: Radiology/Procedures: PROCEDURE: CHEST AP ONLY EXAMINATION: XR CHEST 1V CLINICAL HISTORY: Fever EXAM DATE/TIME: 01/29/2021 9:47 PM COMPARISON: None FINDINGS: Lines, Tubes, and Devices: None. Cardiomediastinal Silhouette: Within normal limits. Lungs and Pleura: No evidence of focal airspace consolidation or pleural effusion. Pulmonary vasculature unremarkable. Probable skinfold in the lateral right hemithorax. Bones and Soft Tissues: No acute osseous abnormality. IMPRESSION: No evidence of acute cardiopulmonary abnormality. Electronically signed by: Hiren Martinez DO (01/29/2021 10:27 PM) [facility] Heart Score: C/O Chest Pain: N/A Course & Med Decision Making: Course & Med Decision Making Pertinent Labs and Imaging studies reviewed. (See chart for details) [] Zach Disclaimer: Dragon Disclaimer: This electronic medical record was generated, in whole or in part, using a voice recognition dictation system. Departure Departure: Impression: Primary Impression: Overdose Qualified Codes: T50.901A - Poisoning by unspecified drugs, medicaments and biological substances, accidental (unintentional), initial encounter Additional Impressions: Bandemia Elevated LFTs Disposition: HOME / SELF CARE / HOMELESS Condition: STABLE Referrals: PCP,NO (PCP) Patient Instructions: Narcotic Overdose, Overdose, Accidental Additional Instructions: Please call [facility] at to seek help for your mental health and/or drug/alcohol abuse. Please follow up with your family doctor regarding rechecking your liver enzymes which were elevated today. JOSE HEDRICK DO January 29, 2021 22:50
--- NOTE | 2021-01-29 23:22 | EKG ---
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
[2021-01-30 02:03] LABS: BARBITURATES NEG (NEG); BENZODIAZEPINES NEG (NEG); CANNABINOIDS POS (NEG); COCAINE NEG (NEG); METHADONE NEG (NEG); OPIATES POS (NEG); PHENCYCLIDINE NEG (NEG)
[2021-01-30 02:06] LABS: AMPHETAMINE/METHAMPHETAMINE POS (NEG)
[2021-01-30 02:34] LABS: BACTERIA,URINE 0 /HPF (0-FEW); BILIRUBIN,URINE SMALL (NEG); CLARITY,URINE CLEAR; COLOR,URINE YELLOW; GLUCOSE,URINE NEG (NEG); NITRITE,URINE NEG (NEG); RBC,URINE 0 /HPF (0-2); SQUAMOUS EPITHELIAL CELL,UR OCC /LPF; UROBILINOGEN,URINE >=8.0 mg/dL (0.2 mg/dL); WBC,URINE 0 /HPF (0-4)
[2021-01-30 02:43] VITALS: BP 90/58
[2021-02-01 21:13] LABS: HCV ULTRA QUANT PCR 30400 IU/mL (.)
== END 2021-01-30 02:42 | disposition home or self-care (01) ==
LOC: ER 20:21
DX: T65.891A Toxic effect of other specified substances, accidental (unintentional), initial encounter (principal); D72.825 Bandemia; R79.89 Other specified abnormal findings of blood chemistry; F17.210 Nicotine dependence, cigarettes, uncomplicated; Z90.49 Acquired absence of other specified parts of digestive tract; Z98.84 Bariatric surgery status; Z88.0 Allergy status to penicillin; Y92.89 Other specified places as the place of occurrence of the external cause
CPT/HCPCS: 71045; 80053; 80307; 80329; 81001; 83735; 85007; 85025; 86703; 86705; 86709; 86803; 87340; 87522; 93005; 99285; G0480; J7030; 36415